=== PATIENT | male | born 1955 | race Caucasian/White ===

== ENCOUNTER 2016-09-04 07:05 | Outpatient (CLI) | payer BC | END 2016-09-04 07:06 | DX: E78.2 Mixed hyperlipidemia (principal); Z79.899 Other long term (current) drug therapy; I10 Essential (primary) hypertension; M10.9 Gout, unspecified; R73.09 Other abnormal glucose ==

== ENCOUNTER 2016-09-04 10:43 | Outpatient (CLI) | payer BC | END 2016-09-04 10:44 | disposition home or self-care (01) | DX: E78.2 Mixed hyperlipidemia (principal); Z79.899 Other long term (current) drug therapy; I10 Essential (primary) hypertension; M10.9 Gout, unspecified; R73.09 Other abnormal glucose ==

== ENCOUNTER 2017-03-01 10:53 | Outpatient (CLI) | payer OTHER ==
[2017-03-01 11:30] LABS: ALBUMIN/GLOBULIN RATIO 1.5 (1.0-2.2); BILIRUBIN,TOTAL 0.7 mg/dL (0.2-1.0); CALCIUM 9.4 mg/dL (8.5-10.3); CREATININE 0.9 mg/dL (0.6-1.2); POTASSIUM 4.1 mmol/L (3.5-5.0); TOTAL PROTEIN 7.4 g/dL (6.7-8.2)
== END 2017-03-01 10:54 | disposition home or self-care (01) ==
LOC: LAB 10:53
PROVIDERS: ATTEND Internal Medicine
DX: E11.9 Type 2 diabetes mellitus without complications (principal); B19.20 Unspecified viral hepatitis C without hepatic coma
CPT/HCPCS: 36415; 80053

== ENCOUNTER 2017-03-27 10:55 | Outpatient (CLI) | payer OTHER | END 2017-03-27 10:56 | disposition home or self-care (01) | LOC: LAB 10:55 | PROVIDERS: ATTEND Internal Medicine | DX: E11.9 Type 2 diabetes mellitus without complications (principal) | CPT/HCPCS: 36415; 82947 ==

== ENCOUNTER 2017-05-31 12:58 | Emergency (ER) | payer OTHER ==
[2017-05-31 13:05] VITALS: BP 128/72
--- NOTE | 2017-05-31 14:17 | XRAY Preliminary Report ---
Exam: XR CHEST 2 VIEW X-RAY IMPRESSION: Negative chest. [facility] SITE ID: [id number]
--- NOTE | 2017-05-31 14:18 | XRAY Report ---
EXAM: CHEST RADIOGRAPHY EXAM DATE: 05/31/2017 02:10 PM. CLINICAL HISTORY: Productive cough for 7 days. COMPARISON: 10/12/2010. TECHNIQUE: 2 views. FINDINGS: Lungs/Pleura: No focal opacities evident. No pleural effusion. No pneumothorax. Normal volumes. Mediastinum: Heart and mediastinal contours are unremarkable. Other: Previously seen left lung airspace disease has cleared. IMPRESSION: Negative chest. [facility] Referring Provider Line: [phone] SITE ID: [id number]
--- NOTE | 2017-05-31 15:19 | ED Physician Documentation ---
PD HPI URI - Stated complaint Stated Complaint: COUGH - Chief complaint Chief Complaint: Resp - History obtained from History obtained from: Patient - History of Present Illness Timing duration: Weeks (1) Timing details: Still present Associated symptoms: Productive cough. No: Fever, Dyspnea - Additional information Additional information: The patient is a 62-year-old male who complains of productive cough for the past week. He reports pain on the right side of his chest with coughing. He denies fever or shortness of breath. He denies any recent travel or traumatic injury. He admits to smoking cigars. Review of Systems Constitutional: reports: Fatigue. denies: Fever Ears: denies: Ear pain, Tinnitus/ringing Nose: reports: Congestion Throat: denies: Sore throat Cardiac: reports: Chest pain / pressure (with coughing.). denies: Palpitations Respiratory: reports: Cough. denies: Dyspnea GI: denies: Abdominal Pain, Nausea, Vomiting : denies: Dysuria Skin: denies: Rash Musculoskeletal: denies: Back pain, Extremity swelling Neurologic: denies: Focal weakness, Numbness, Headache PD PAST MEDICAL HISTORY - Past Medical History Past Medical History: Yes Cardiovascular: Hypertension, High cholesterol, Murmur, Arrhythmia, Other Respiratory: Pneumonia Neuro: None Endocrine/Autoimmune: None, Type 2 diabetes GI: GERD, Hemorrhoids, Hepatitis, Other : Benign prostate hypertrophy, Frequency, Kidney stones HEENT: None Psych: Depression, Anxiety Musculoskeletal: None Derm: Other - Past Surgical History Past Surgical History: Yes General: Liver surgery, Colonoscopy, EGD - Present Medications Home Medications: Ambulatory Orders Medication Instructions Recorded Confirmed Buprenorphine HCl/Naloxone HCl 8 mg ORAL BID 08/23/15 05/31/17 [Buprenorphin-Naloxon 8-2 mg Sl] Metoprolol Succinate [Toprol Xl] 200 mg ORAL BID 08/23/15 05/31/17 Sitagliptin Phos/Metformin HCl 1,000 mg ORAL QPM 08/23/15 05/31/17 [Janumet 50-500 mg Tablet] Ibuprofen 800 mg PO TID #20 tablet 08/24/15 05/31/17 Tamsulosin [Flomax] 0.4 mg PO DAILY #5 capsule 08/24/15 05/31/17 amLODIPine [Norvasc] 5 mg PO BID 08/26/15 05/31/17 Allopurinol 300 mg PO DAILY 05/31/17 05/31/17 Benzonatate [Tessalon Perle] 100 mg PO BID #10 capsule 05/31/17 Linaclotide [Linzess] 145 mcg PO BID 05/31/17 05/31/17 - Allergies Allergies/Adverse Reactions: Allergies Allergy/AdvReac Type Severity Reaction Status Date / Time narcotics Allergy Anxiety Uncoded 05/31/17 13:05 - Social History Does the pt smoke?: No Smoking Status: Never smoker Does the pt drink ETOH?: No Does the pt have substance abuse?: No - Immunizations Immunizations are current?: No Immunizations: TDAP >10years/unknown - POLST Patient has POLST: No PD ED PE NORMAL - Vitals Vital signs reviewed: Yes (normal) - General General: Alert and oriented X 3, Well developed/nourished - HEENT HEENT: Atraumatic, Ears normal, Pharynx benign - Neck Neck: Supple, no meningeal sign, No adenopathy, No JVD - Cardiac Cardiac: RRR, No murmur - Respiratory Respiratory: No respiratory distress, Clear bilaterally, Other (Mild intercostal chest wall tenderness to palpation on the right.) - Abdomen Abdomen: Soft, Non tender - Back Back: No CVA TTP - Derm Derm: No rash - Extremities Extremities: No edema, No calf tenderness / cord - Neuro Neuro: Alert and oriented X 3, No motor deficit, No sensory deficit Results - Vitals Vitals: Oxygen O2 Source Room air - Labs Labs: Laboratory Tests 05/31/17 15:33 Influenza A (Rapid) Negative Influenza B (Rapid) Negative Influenza Types A,B Ag - - Rads (name of study) CXR Radiology: Prelim report reviewed, EMP read contemporaneously, See rad report ( Negative two-view chest.) PD MEDICAL DECISION MAKING - ED course Complexity details: reviewed results, re-evaluated patient, considered differential, d/w patient ED course: The patient's presentation is most consistent with viral upper respiratory infection with costochondral chest pain caused coughing. His chest x-ray reveals no infiltrate or other pulmonary abnormality. Influenza swab is negative. I discussed the chest x-ray results with the patient, results of the influenza swab were still pending when the patient decided to leave the emergency department without the discharge instructions or the prescription for Tessalon Perles that I had written for him. Departure - Departure Disposition: 01 Home, Self Care Clinical Impression: URI, acute, Costochondral chest pain Condition: Stable Instructions: ED Upper Resp Infec No Abx Tx, ED Chest Pain Costochondritis Follow-Up: Jamshid Reynoso MD [Primary Care Provider] - Prescriptions: Benzonatate [Tessalon Perle] 100 mg PO BID #10 capsule Comments: Drink plenty of fluids. You can use Tylenol or ibuprofen as needed for fever or discomfort. Take Tessalon Perles as prescribed if needed for cough. You can also use Benadryl, 50 mg at night, if needed to help dry secretions to aid with sleep. Follow up with your primary physician within 1-2 weeks if not completely resolved. Return to the emergency department if you develop increasing difficulty breathing, or otherwise worsening symptoms. Discharge Date/Time: 05/31/17 16:27
== END 2017-05-31 16:27 | disposition home or self-care (01) ==
LOC: ED 12:58
DX: J06.9 Acute upper respiratory infection, unspecified (principal); M94.0 Chondrocostal junction syndrome [Tietze]; I10 Essential (primary) hypertension; E78.00 Pure hypercholesterolemia, unspecified; I49.9 Cardiac arrhythmia, unspecified; E11.9 Type 2 diabetes mellitus without complications; K21.9 Gastro-esophageal reflux disease without esophagitis; K75.9 Inflammatory liver disease, unspecified; N40.0 Benign prostatic hyperplasia without lower urinary tract symptoms; Z87.442 Personal history of urinary calculi
CPT/HCPCS: 71046; 87275; 87276; 99282; 99283

== ENCOUNTER 2017-09-09 11:38 | Outpatient (CLI) | payer OTHER ==
[2017-09-09 12:11] LABS: HEMOGLOBIN A1C 0.59 g/dL; HEMOGLOBIN A1C % 5.5 % (4.6-6.2)
== END 2017-09-09 11:39 | disposition home or self-care (01) ==
LOC: LAB 11:38
PROVIDERS: ATTEND Internal Medicine
DX: E11.9 Type 2 diabetes mellitus without complications (principal)
CPT/HCPCS: 36415; 83036

== ENCOUNTER 2017-09-13 11:11 | Outpatient (CLI) | payer OTHER ==
--- NOTE | 2017-09-13 19:50 | XRAY Report ---
RIGHT HIP AND PELVIS: 09/13/2017 CLINICAL INDICATION: Joint pain. FINDINGS: Frontal view of the hips and pelvis and frogleg lateral view of the right hip demonstrate mild osteoarthritis. There is no evidence of fracture or dislocation. No foreign body is seen in the soft tissues. IMPRESSION: MILD OSTEOARTHRITIS. TD: 09/13/2017 19:49
== END 2017-09-13 11:12 | disposition home or self-care (01) ==
LOC: DI 11:11
PROVIDERS: ATTEND Internal Medicine
DX: M25.551 Pain in right hip (principal)

== ENCOUNTER 2018-05-09 10:12 | Outpatient (CLI) | payer OTHER ==
[2018-05-10 16:06] LABS: HEPATITIS B CORE AB TOTAL NON-REACTIVE (NON-REACTIVE)
[2018-05-12 15:37] LABS: HEPATITIS B SURFACE ANTIGEN NON-REACTIVE (NON-REACTIVE); HEPATITIS C ANTIBODY REACTIVE (NON-REACTIVE)
== END 2018-05-09 10:13 | disposition home or self-care (01) ==
LOC: LAB 10:12
DX: B18.2 Chronic viral hepatitis C (principal)
CPT/HCPCS: 36415; 86317; 86704; 86803; 87340; 87902